=== PATIENT | male | born 1980 | race Caucasian/White ===

== ENCOUNTER 2017-11-30 10:10 | Inpatient (IN) | payer OTHER ==
[2017-11-30 10:46] LABS: #Eosinphils 0.1 thou/uL (0.0-0.7); #Lymphocytes 2.3 thou/uL (1.20-3.40); #Monocytes 0.6 thou/uL (0.11-0.59); #Neutrophils 3.8 thou/uL (1.40-6.50); %Basophils 0.6 % (0.0-1.0); %Eosinophils 1.8 % (0.0-10.0); %Lymphocytes 33.9 % (21.0-51.0); %Neutrophils 55.7 % (42.0-75.0); Hemoglobin 16.2 g/dL (14.0-18.0); Mean Corpuscular HGB CONC 34.7 g/dL (32.0-36.0); Mean Corpuscular Hemoglobin 31.5 pg (27.0-31.0); Mean Platelet Volume 7.7 fL (7.4-10.4); Platelet Count 167 thou/uL (130-400); RBC Distribution Width 10.9 % (11.5-14.5); Red Blood Cell (RBC) Count 5.13 mill/uL (4.70-6.10); White Blood Cell (WBC) Count 6.8 thou/uL (4.8-10.8)
[2017-11-30 11:00] LABS: ALT (SGPT) 779 U/L (8-55); AST (SGOT) 2171 U/L (5-34); Albumin 4.1 g/dL (3.5-5.0); Alkaline Phosphatase 40 U/L (40-150); Anion Gap 15 mmol/L (10-20); BUN (Urea Nitrogen) 11 mg/dL (8.9-20.6); Bilirubin, Total 0.7 mg/dL (0.2-1.2); Calc. Creatinine Clearance 0 mL/min (70-130); Calcium 9.2 mg/dL (7.8-10.44); Carbon Dioxide 21 mmol/L (22-29); Chloride 106 mmol/L (98-107); Estimated GFR-MDRD 88; Globulin 3.1 g/dL (2.4-3.5); Glucose 99 mg/dL (70-105); Protein, Total 7.2 g/dL (6.0-8.3); Sodium 137 mmol/L (136-145)
[2017-11-30 11:04] LABS: Bilirubin Negative (Negative); Blood, Urine Large (Negative); Clarity CLEAR (Clear); Glucose, Urine (Dipstick) Negative (Negative); Leukocyte Negative (Negative); Nitrite Negative (Negative); Protein, Urine (Dipstick) 30 mg/dL (Neg-Trace); Specific Gravity, Urine 1.009 (1.002-1.036); Urobilinogen 0.2 mg/dL (0.2-1.0)
[2017-11-30 11:05] LABS: Troponin I 0.087 ng/mL (< 0.028)
[2017-11-30 11:06] LABS: Bacteria/HPF None Seen HPF (None Seen); Hyaline Casts/LPF 0-3 HYALINE CAST LPF (0-3 Hyaline); RBC/HPF None Seen HPF (0-3); Squamous Epithelial None Seen HPF (0-3); WBC/HPF None Seen HPF (0-3)
[2017-11-30 11:09] LABS: CKMB 27.4 ng/mL (0-6.6)
[2017-11-30 12:14] LABS: CK (CPK) Greater than 40000 U/L (30-200)
--- NOTE | 2017-11-30 12:52 | PDOC.FPRHP ---
- History of Present Illness Chief Complaint: Body aches and fatigue History of Present Illness: 37 year old male with no significant PMH presents with a 4 day history of fatigue and body aches. Patient normally works out 5 days a week but had recently been on vacation in [place], so his workout regimen has been minimal over the last several weeks. On Sunday, pt attempted the "Me" workout as he does every year. The day after his intense workout he noticed swelling and pain in his arms. He has been unable to fully extend or flex his arms since that time. Patient has had rhabdomyolysis in the past and recognized the symptoms so he had his buddies at work hook him up to an IV. He got a total of 5 L before seeking care. Patient went into clinic for evaluation. Labs were checked and he was noted to have an elevated CK. PCP called and told him to come to the ER for fluids. Patient denies chest pain, shortness of breath, fever, decreased appetite, or numbness/tingling in extremities. - Allergies/Adverse Reactions Allergies Allergy/AdvReac Type Severity Reaction Status Date / Time No Known Allergies Allergy Unverified 11/30/17 14:54 - Home Medications Medication Instructions Recorded Confirmed Type No Known [No Known] 11/30/17 11/30/17 History - History PMHx: No Known PMH PSHx: None FHx: Insignificant Social: Denies tobacco or drug use. Endorses occasional alcohol use. - Review of Systems General: reports: fatigue. denies: fever/chills, weight/appetite/sleep changes , night sweats Eyes: denies: eye pain, vision changes ENT: denies: nasal congestion, rhinorrhea Respiratory: denies: cough, congestion, shortness of breath, exercise intolerance Cardiovascular: denies: chest pain, palpitation, edema, paroxysmal nocturnal dyspnea Gastrointestinal: denies: nausea, vomiting, diarrhea, constipation, abdominal pain Genitourinary: denies: incontinence, dysuria, polyuria Skin: denies: rashes, lesions, jaundice, itching Musculoskeletal: reports: pain, tenderness, stiffness, swelling. denies: arthritis/arthralgias Neurological: reports: weakness. denies: numbness, syncope, seizure Psychological: denies: anxiety, depression - Vital signs BP: 136/72 HR: 54 RR: 18 Tmax: 98.4 F Pox: 99% on RA Wt: 92.99 kg - Physical Exam Constitutional: NAD, awake, alert and oriented, well developed HEENT: normocephalic and atraumatic, PERRLA, EOMI, no scleral icterus, grossly normal vision, grossly normal hearing, normal nasal mucosa Neck: supple, FROM, trachea midline Heart: RRR, normal S1/S2, no murmurs/rubs/gallops, pulses present, no edema Lungs: CTAB, no respiratory distress, good air movement, no wheezing Abdomen: soft, non-tender, bowel sounds present, no masses/distention -Musculoskeletal: Swollen bilateral upper extremities most pronounced in bicep and tricep regions. Patient unable to fully extend or flex both arms at elbow joint. Bilateral upper extremities neurovascularly intact. Neurological: no focal deficit, CN II-XII intact, normal sensation Skin: no rash/lesions, good turgor, capillary refill <2 seconds Heme/Lymphatic: no unusual bruising or bleeding, no purpura, no petechia Psychiatric: normal mood and affect, good judgment and insight, intact recent and remote memory FMR H&P: Results - Labs Result Diagrams: 11/30/17 10:39 11/30/17 10:39 Lab results: WBC 6.8 thou/uL (4.8-10.8) 11/30/17 10:39 Hgb 16.2 g/dL (14.0-18.0) 11/30/17 10:39 Hct 46.6 % (42.0-52.0) 11/30/17 10:39 MCV 91.0 fl (80.0-94.0) 11/30/17 10:39 Plt Count 167 thou/uL (130-400) 11/30/17 10:39 Neutrophils % 55.7 % (42.0-75.0) 11/30/17 10:39 Sodium 137 mmol/L (136-145) 11/30/17 10:39 Potassium 5.0 mmol/L (3.5-5.1) 11/30/17 10:39 Chloride 106 mmol/L (98-107) 11/30/17 10:39 Carbon Dioxide 21 mmol/L (22-29) L 11/30/17 10:39 BUN 11 mg/dL (8.9-20.6) 11/30/17 10:39 Creatinine 0.97 mg/dL (0.6-1.3) 11/30/17 10:39 Glucose 99 mg/dL (70-105) 11/30/17 10:39 Lactic Acid 1.0 mmol/L (0.5-2.2) 11/30/17 10:40 Calcium 9.2 mg/dL (7.8-10.44) 11/30/17 10:39 Total Bilirubin 0.7 mg/dL (0.2-1.2) 11/30/17 10:39 AST 2171 U/L (5-34) H 11/30/17 10:39 ALT 779 U/L (8-55) H 11/30/17 10:39 Alkaline Phosphatase 40 U/L (40-150) 11/30/17 10:39 Creatine Kinase Greater than [address]10 U/L (30-200) H 11/30/17 10:39 CK-MB (CK-2) 27.4 ng/mL (0-6.6) H* 11/30/17 10:39 Serum Total Protein 7.2 g/dL (6.0-8.3) 11/30/17 10:39 Albumin 4.1 g/dL (3.5-5.0) 11/30/17 10:39 Urine Ketones Negative mg/dL (Negative) 11/30/17 10:21 Urine Blood Large (Negative) H 11/30/17 10:21 Urine Nitrite Negative (Negative) 11/30/17 10:21 Ur Leukocyte Esterase Negative (Negative) 11/30/17 10:21 Urine RBC None Seen HPF (0-3) 11/30/17 10:21 Urine WBC None Seen HPF (0-3) 11/30/17 10:21 Ur Squamous Epith Cells None Seen HPF (0-3) 11/30/17 10:21 Urine Bacteria None Seen HPF (None Seen) 11/30/17 10:21 - EKG Interpretation EKG: NSR FMR H&P: A/P - Problem List (1) Rhabdomyolysis Current Visit: Yes Status: Acute Code(s): M62.82 - RHABDOMYOLYSIS - Plan Rhabdomyolysis - Fluid resuscitation s/p 4 L - Goal urine output 200-300 mL per hour - Maintenance IVF NS at 250 ml/hr - Electrolytes pending - Trend CK - Strict I&O's Elevated troponin - Likely 2/2 muscle breakdown - Trend troponin - EKG NSR Transaminitis - Likely 2/2 muscle break down - Trend CMP Dispo: Admit to medical. Anticipate LOS >48 hours. FMR H&P: Upper Level - Pertinent history 37yo CM with no sig pmhx presents to [facility] after arm pain & swelling and dark colored urine for a few days after an intense "Em" [employer] work out 5 days [employer] (on ). Went to PCP yesterday who performed CMP + CK and the level was noted to be > 40,000 who recommended IV fluid treatment. Endorses 100 weighted pull-ups during work out which is outside his normal routine. 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 Denies cp, sob, n/v, or numbness/tingling to b/l UE. - Pertinent findings Laboratory Tests 11/30/17 11/30/17 11/30/17 10:39 10:39 10:39 WBC 6.8 Hct 46.6 MCV 91.0 Plt Count 167 Sodium 137 Potassium 5.0 Chloride 106 Carbon Dioxide 21 L BUN 11 Creatinine 0.97 Estimated GFR (MDRD) 88 Glucose 99 Lactic Acid Calcium 9.2 Phosphorus Magnesium Total Bilirubin 0.7 AST 2171 H ALT 779 H Alkaline Phosphatase 40 Creatine Kinase Greater [place] 27318 H CK-MB (CK-2) 27.4 H* Troponin I 0.087 H 11/30/17 11/30/17 10:39 10:40 WBC Hct MCV Plt Count Sodium Potassium Chloride Carbon Dioxide BUN Creatinine Estimated GFR (MDRD) Glucose Lactic Acid 1.0 Calcium Phosphorus 3.4 Magnesium 2.4 Total Bilirubin AST ALT Alkaline Phosphatase Creatine Kinase CK-MB (CK-2) Troponin I PE- Gen- NAD, A&Ox3, well appearing CV- rrr no mrg, no LE edema Lungs- CTAB Abd- soft, nontender Ext- b/l UE tense and decreased ROM - Plan Date/Time: 11/30/17 1251 37yo CM with no pmhx- 1) Rhabdomyolysis- s/p 4L NS bolus in ED, now on NS @ 250ml/hr with goal of 200- 300ml/hr UOP. Push po fluids. Strict I&O, monitor liver/kidney function and trend CK. 2) Elevated AST/ALT- likely due to muscle breakdown. monitor/trend 3) Elevated CKMB/trop- likely due to muscle breakdown. asymptomatic from ACS standpoint. EKG NSR. I, [Gail Rowe DO ([email or web address])], have evaluated this patient and agree with findings/plan as outlined by recruitment internship resident. Pertinent changes/additions are listed here. Attending Addendum - Attending Addendum Date/Time: 11/30/172004 I personally evaluated the patient and discussed the management with Dr. Momin I agree with the History, Examination, Assessment and Plan documented above with any addition or exceptions noted below- Briefly this is a 37 yo male with no significant PMH who presented c/o bilateral arm pain and swelling. He had performed vigorous exercise on Sunday and since then has had pain in his upper arms and swelling. Denies any CO, SOB, leg pain, numbness or tingling. PMH/PSH/ All/Meds/SH/ROS reviewed and agree with residents documentation. Afebrile VSS Exam repeated by me and agree with residents findings. Labs: CK>[id number] A/P: 1) Rhabdomyolysis- continue vigorous hydration. normal renal function at this time. Continue to monitor closely.
[2017-11-30 13:34] LABS: Magnesium 2.4 mg/dL (1.6-2.6); Phosphorus 3.4 mg/dL (2.3-4.7)
[2017-11-30] MEDS ORDERED: Milk Of Magnesia 30 ML UDCUP PO PRN (14:15)
[2017-11-30] MEDS ORDERED: Ondansetron HCl/PF 4 MG/2 ML Vial IVP PRN (14:15)
[2017-11-30] MEDS ORDERED: Mag-Al 1200 mg/1200 mg/30 ML UDCUP PO PRN (14:15)
[2017-11-30] MEDS ORDERED: Ondansetron ODT 4 MG TAB PO PRN (14:15)
[2017-11-30] MEDS ORDERED: Calcium Carbonate 500 MG ChewTAB PO PRN (14:15)
[2017-11-30] MEDS ORDERED: traMADol HCl 50 MG TAB PO PRN (14:17)
[2017-11-30 14:52] VITALS: BMI 29.9
[2017-11-30] MEDS: Sodium Chloride 0.9% 1,000 ML IV SCH ×3 (16:42→22:09)
[2017-12-01] MEDS: Sodium Chloride 0.9% 1,000 ML IV SCH ×5 (02:08→20:19)
[2017-12-01 05:40] LABS: #Basophils 0.1 thou/uL (0.0-0.2); #Eosinphils 0.2 thou/uL (0.0-0.7); #Lymphocytes 2.7 thou/uL (1.20-3.40); #Monocytes 0.6 thou/uL (0.11-0.59); #Neutrophils 4.5 thou/uL (1.40-6.50); %Basophils 0.6 % (0.0-1.0); %Eosinophils 2.1 % (0.0-10.0); %Lymphocytes 34.1 % (21.0-51.0); %Monocytes 6.9 % (0.0-10.0); %Neutrophils 56.3 % (42.0-75.0); Hemoglobin 14.7 g/dL (14.0-18.0); Mean Corpuscular HGB CONC 33.9 g/dL (32.0-36.0); Mean Corpuscular Hemoglobin 30.8 pg (27.0-31.0); Mean Platelet Volume 7.8 fL (7.4-10.4); Platelet Count 157 thou/uL (130-400); Red Blood Cell (RBC) Count 4.77 mill/uL (4.70-6.10)
[2017-12-01 05:54] LABS: ALT (SGPT) 716 U/L (8-55); AST (SGOT) 1728 U/L (5-34); Albumin 3.7 g/dL (3.5-5.0); Alkaline Phosphatase 32 U/L (40-150); Anion Gap 11 mmol/L (10-20); BUN (Urea Nitrogen) 11 mg/dL (8.9-20.6); Bilirubin, Total 0.5 mg/dL (0.2-1.2); Calc. Creatinine Clearance 167 mL/min (70-130); Carbon Dioxide 23 mmol/L (22-29); Chloride 110 mmol/L (98-107); Estimated GFR-MDRD Greater than 90; Globulin 2.4 g/dL (2.4-3.5); Glucose 100 mg/dL (70-105); Potassium 4.3 mmol/L (3.5-5.1); Protein, Total 6.1 g/dL (6.0-8.3); Sodium 140 mmol/L (136-145)
--- NOTE | 2017-12-01 06:27 | PDOC.FM ---
- Subjective Subjective: No acute events overnight. No complaints this am. - Objective MAR Reviewed: Yes Vital Signs & Weight: Vital Signs (12 hours) Temp Pulse Resp BP Pulse Ox 11/30/17 20:00 98.0 F 60 16 146/79 H 97 Result Diagrams: 12/01/17 04:54 12/01/17 04:54 <Dulce Batista - Last Filed: 12/01/17 07:44> - Objective Vital Signs & Weight: Vital Signs (12 hours) Temp Pulse Resp BP Pulse Ox 12/01/17 07:35 97.7 F 53 L 18 161/91 H 99 I&O: 11/30/17 12/01/17 12/02/17 06:59 06:59 06:59 Intake Total 2750 Output Total 4400 Balance -1650 Result Diagrams: 12/01/17 04:54 12/01/17 04:54 <Pino Mackay - Last Filed: 12/01/17 09:06> Phys Exam - Physical Examination Constitutional: NAD HEENT: PERRLA, moist MMs Neck: no JVD Respiratory: no wheezing, no rales, clear to auscultation bilateral Cardiovascular: RRR, no significant murmur Gastrointestinal: soft, non-tender, no distention, positive bowel sounds Musculoskeletal: no edema, pulses present Neurological: non-focal Psychiatric: normal affect, A&O x 3 Skin: no rash <Dulce Batista - Last Filed: 12/01/17 07:44> Dx/Plan (1) Elevated troponin Code(s): R74.8 - ABNORMAL LEVELS OF OTHER SERUM ENZYMES Status: Acute (2) Elevated liver enzymes Code(s): R74.8 - ABNORMAL LEVELS OF OTHER SERUM ENZYMES Status: Acute (3) Rhabdomyolysis Code(s): M62.82 - RHABDOMYOLYSIS Status: Acute - Plan Plan: Rhabdomyolysis - Fluid resuscitation s/p 4 L - Goal urine output 200-300 mL per hour - Maintenance IVF NS at 250 ml/hr - Bolused an additional 1L this am - Trend CK - Strict I&O's Elevated troponin - Likely 2/2 muscle breakdown - Trend troponin - EKG NSR Transaminitis - Likely 2/2 muscle break down - Trend CMP Dispo: Admit to medical. Anticipate LOS >48 hours. <Dulce Batista - Last Filed: 12/01/17 07:44> Attending Addendum - Attending Addendum Date/Time: 12/01/17904 I personally evaluated the patient and discussed the management with Dr. Luna. I agree with the History, Examination, Assessment and Plan documented above with any addition or exceptions noted below. Continue hydration for rhabdomyolysis and medical care as described. <Pino Mackay - Last Filed: 12/01/17 09:06>
[2017-12-01 06:33] LABS: CK (CPK) Greater than 40000 U/L (30-200)
[2017-12-01] MEDS ORDERED: Sodium Chloride 0.9% 1,000 ML IV SCH ×2 (06:45→16:00)
[2017-12-01 08:00] LABS: Troponin I 0.078 ng/mL (< 0.028)
[2017-12-01 08:05] LABS: CKMB 14.1 ng/mL (0-6.6)
[2017-12-01 11:15] LABS: CKMB 16.2 ng/mL (0-6.6)
[2017-12-02] MEDS: Sodium Chloride 0.9% 1,000 ML IV SCH ×6 (00:26→21:01)
[2017-12-02 05:44] LABS: Troponin I 0.075 ng/mL (< 0.028)
[2017-12-02 05:56] LABS: #Eosinphils 0.2 thou/uL (0.0-0.7); #Lymphocytes 2.7 thou/uL (1.20-3.40); #Monocytes 0.6 thou/uL (0.11-0.59); #Neutrophils 3.5 thou/uL (1.40-6.50); %Basophils 0.2 % (0.0-1.0); %Eosinophils 3.1 % (0.0-10.0); %Lymphocytes 38.7 % (21.0-51.0); %Monocytes 8.5 % (0.0-10.0); %Neutrophils 49.6 % (42.0-75.0); Hemoglobin 13.7 g/dL (14.0-18.0); Mean Corpuscular HGB CONC 32.9 g/dL (32.0-36.0); Mean Corpuscular Volume 91.2 fl (80.0-94.0); Mean Platelet Volume 8.1 fL (7.4-10.4); Platelet Count 147 thou/uL (130-400); RBC Distribution Width 11.1 % (11.5-14.5); Red Blood Cell (RBC) Count 4.58 mill/uL (4.70-6.10); White Blood Cell (WBC) Count 7.1 thou/uL (4.8-10.8)
--- NOTE | 2017-12-02 06:33 | PDOC.FM ---
- Subjective Subjective: No acute events overnight. VSS. Afebrile. States his muscle aches are improved. - Objective MAR Reviewed: Yes Vital Signs & Weight: Vital Signs (12 hours) Temp Pulse Resp BP Pulse Ox 12/01/17 20:04 97.6 F 69 18 98 12/01/17 20:00 97.6 F 69 18 151/95 H 98 I&O: 11/30/17 12/01/17 12/02/17 06:59 06:59 06:59 Intake Total 2750 7230 Output Total 4400 9200 Balance Result Diagrams: 12/02/17 04:20 12/02/17 04:20 <Dulce Batista - Last Filed: 12/02/17 07:30> - Objective Vital Signs & Weight: Vital Signs (12 hours) Temp Pulse Resp BP Pulse Ox 12/02/17 08:10 97.7 F 65 18 134/82 98 I&O: 12/01/17 12/02/17 12/03/17 06:59 06:59 06:59 Intake Total 2750 7230 Output Total 4400 9200 Balance Result Diagrams: 12/02/17 04:20 12/02/17 04:20 <Pino Mackay - Last Filed: 12/02/17 08:45> Phys Exam - Physical Examination Constitutional: NAD Respiratory: no wheezing, no rales, no rhonchi, clear to auscultation bilateral Cardiovascular: RRR, no significant murmur Gastrointestinal: soft, non-tender, no distention Musculoskeletal: no edema, pulses present Neurological: non-focal Psychiatric: normal affect, A&O x 3 Skin: no rash, normal turgor, cap refill <2 seconds <uDlce Batista - Last Filed: 12/02/17 07:30> Dx/Plan (1) Rhabdomyolysis Code(s): M62.82 - RHABDOMYOLYSIS Status: Acute (2) Elevated troponin Code(s): R74.8 - ABNORMAL LEVELS OF OTHER SERUM ENZYMES Status: Acute (3) Elevated liver enzymes Code(s): R74.8 - ABNORMAL LEVELS OF OTHER SERUM ENZYMES Status: Acute - Plan Plan: Rhabdomyolysis - Ordered an additional 1L of fluids this am as pt's CK is still >40,000 - Will recheck CK this afternoon at 1500 - Goal urine output 200-300 mL per hour - Maintenance IVF NS at 250 ml/hr - Trend CK - Strict I&O's Elevated troponin - Likely 2/2 muscle breakdown - downtrending - EKG NSR Transaminitis - Likely 2/2 muscle break down, downtrending Dispo: Admit to medical. Anticipate LOS >48 hours. <uDlce Batista - Last Filed: 12/02/17 07:30> Attending Addendum - Attending Addendum Date/Time: 12/02/17 0844 I personally evaluated the patient and discussed the management with Dr. Luna I agree with the History, Examination, Assessment and Plan documented above with any addition or exceptions noted below. Still elevated cpk/ck-mb and lfts. No chest pain. Will continue iv and oral hydration and monitor labs. <Pino Mackay - Last Filed: 12/02/17 08:45>
[2017-12-02] MEDS ORDERED: Sodium Chloride 0.9% 1,000 ML IV SCH (06:45)
[2017-12-02 07:17] LABS: ALT (SGPT) 697 U/L (8-55); AST (SGOT) 1426 U/L (5-34); Albumin 3.6 g/dL (3.5-5.0); Alkaline Phosphatase 31 U/L (40-150); Anion Gap 11 mmol/L (10-20); BUN (Urea Nitrogen) 9 mg/dL (8.9-20.6); Bilirubin, Total 0.4 mg/dL (0.2-1.2); Calc. Creatinine Clearance 167 mL/min (70-130); Calcium 8.9 mg/dL (7.8-10.44); Carbon Dioxide 24 mmol/L (22-29); Chloride 110 mmol/L (98-107); Estimated GFR-MDRD Greater than 90; Globulin 2.3 g/dL (2.4-3.5); Glucose 95 mg/dL (70-105); Potassium 3.9 mmol/L (3.5-5.1); Protein, Total 5.9 g/dL (6.0-8.3); Sodium 141 mmol/L (136-145)
[2017-12-03] MEDS: Sodium Chloride 0.9% 1,000 ML IV SCH ×6 (02:33→19:59)
[2017-12-03 04:37] LABS: #Basophils 0.1 thou/uL (0.0-0.2); #Eosinphils 0.2 thou/uL (0.0-0.7); #Lymphocytes 2.8 thou/uL (1.20-3.40); #Monocytes 0.5 thou/uL (0.11-0.59); %Basophils 0.8 % (0.0-1.0); %Eosinophils 2.8 % (0.0-10.0); %Lymphocytes 42.8 % (21.0-51.0); %Monocytes 7.2 % (0.0-10.0); %Neutrophils 46.3 % (42.0-75.0); Hemoglobin 13.3 g/dL (14.0-18.0); Mean Corpuscular HGB CONC 34.7 g/dL (32.0-36.0); Mean Corpuscular Hemoglobin 31.8 pg (27.0-31.0); Mean Corpuscular Volume 91.8 fl (80.0-94.0); Mean Platelet Volume 8.3 fL (7.4-10.4); Platelet Count 147 thou/uL (130-400); RBC Distribution Width 10.9 % (11.5-14.5); Red Blood Cell (RBC) Count 4.18 mill/uL (4.70-6.10); White Blood Cell (WBC) Count 6.5 thou/uL (4.8-10.8)
[2017-12-03] MEDS ORDERED: Sodium Chloride 0.9% 1,000 ML IV SCH (06:30)
--- NOTE | 2017-12-03 06:38 | PDOC.FM ---
- Subjective Subjective: No acute events overnight. Complains of his hands being puffy. Wants to go home. - Objective Vital Signs & Weight: Vital Signs (12 hours) Temp Pulse Resp BP Pulse Ox 12/02/17 19:43 98.0 F 71 18 142/87 H 97 I&O: 12/01/17 12/02/17 12/03/17 06:59 06:59 06:59 Intake Total 2750 7230 6720 Output Total 4400 9200 8500 Balance -1649 Result Diagrams: 12/03/17 03:50 12/03/17 07:09 <Dulce Batista - Last Filed: 12/03/17 09:11> - Objective Vital Signs & Weight: Vital Signs (12 hours) Temp Pulse Resp Pulse Ox 12/03/17 08:00 98.3 F 70 18 98 I&O: 12/02/17 12/03/17 12/04/17 06:59 06:59 06:59 Intake Total 7230 6720 720 Output Total 9200 8500 720 Result Diagrams: 12/03/17 03:50 12/03/17 07:09 <Stephanie Hodgson - Last Filed: 12/03/17 19:21> Phys Exam - Physical Examination Constitutional: NAD HEENT: PERRLA Respiratory: no wheezing, no rales, clear to auscultation bilateral Cardiovascular: RRR, no significant murmur Gastrointestinal: soft, non-tender, no distention Musculoskeletal: no edema Neurological: non-focal Psychiatric: normal affect, A&O x 3 Skin: no rash <Dulce Batista - Last Filed: 12/03/17 09:11> Dx/Plan (1) Rhabdomyolysis Code(s): M62.82 - RHABDOMYOLYSIS Status: Acute (2) Elevated troponin Code(s): R74.8 - ABNORMAL LEVELS OF OTHER SERUM ENZYMES Status: Acute (3) Elevated liver enzymes Code(s): R74.8 - ABNORMAL LEVELS OF OTHER SERUM ENZYMES Status: Acute - Plan Plan: Rhabdomyolysis - Ordered an additional 1L of fluids this am as pt's CK is 36,691 - Will recheck CK this afternoon at 1500 - Continue to monitor UOP - Maintenance IVF NS at 250 ml/hr - Trend CK - Strict I&O's Elevated troponin - Likely 2/2 muscle breakdown - downtrending - EKG NSR Transaminitis - Likely 2/2 muscle break down, downtrending Dispo: Admit to medical. Hopeful for DC tomorrow. <Dulce Batista - Last Filed: 12/03/17 09:11> Attending Addendum - Attending Addendum Date/Time: 12/03/171920 I personally evaluated the patient and discussed the management with Dr. Batista. I agree with the History, Examination, Assessment and Plan documented above with any addition or exceptions noted below. The patient has a CK coming back this afternoon. Will get ruq u/s to look at liver as he has elevated transaminases. Will continue iv fluids. <Stephanie Hodgson - Last Filed: 12/03/17 19:21>
[2017-12-03 07:47] LABS: ALT (SGPT) 686 U/L (8-55); AST (SGOT) 1057 U/L (5-34); Albumin 3.9 g/dL (3.5-5.0); Alkaline Phosphatase 33 U/L (40-150); Anion Gap 12 mmol/L (10-20); BUN (Urea Nitrogen) 9 mg/dL (8.9-20.6); Bilirubin, Total 0.9 mg/dL (0.2-1.2); Calc. Creatinine Clearance 165 mL/min (70-130); Calcium 9.4 mg/dL (7.8-10.44); Carbon Dioxide 24 mmol/L (22-29); Estimated GFR-MDRD Greater than 90; Globulin 2.7 g/dL (2.4-3.5); Glucose 93 mg/dL (70-105); Iron 84 ug/dL (65-175); Iron Binding Capacity, Total 294 mcg/dL (261-462); Protein, Total 6.6 g/dL (6.0-8.3); Sodium 141 mmol/L (136-145)
[2017-12-03 07:55] LABS: Chloride 109 mmol/L (98-107)
--- NOTE | 2017-12-03 17:35 | ULT ---
GALLBLADDER ULTRASOUND: HISTORY: Elevated LFTs. FINDINGS: Real-time imaging of the right upper quadrant shows a fairly normal appearing gallbladder, perhaps sl ightly contracted, but no gallbladder wall thickening. The technologist reports a negative ultrasoun d Quintero sign. The common duct is 2 mm. The visualized liver parenchyma shows no focal abnormalitie s. The right kidney is not obstructed. The pancreas is fairly well imaged, and it appears unremarka ble. IMPRESSION: Unremarkable gallbladder ultrasound. POS: CARLOS
[2017-12-04] MEDS: Sodium Chloride 0.9% 1,000 ML IV SCH ×5 (00:06→16:42)
[2017-12-04 05:31] LABS: #Eosinphils 0.1 thou/uL (0.0-0.7); #Lymphocytes 2.5 thou/uL (1.20-3.40); #Monocytes 0.5 thou/uL (0.11-0.59); #Neutrophils 2.7 thou/uL (1.40-6.50); %Basophils 0.6 % (0.0-1.0); %Eosinophils 2.1 % (0.0-10.0); %Lymphocytes 42.7 % (21.0-51.0); %Monocytes 8.4 % (0.0-10.0); %Neutrophils 46.1 % (42.0-75.0); Hemoglobin 12.7 g/dL (14.0-18.0); Mean Corpuscular HGB CONC 32.5 g/dL (32.0-36.0); Mean Corpuscular Hemoglobin 29.8 pg (27.0-31.0); Mean Corpuscular Volume 91.7 fl (80.0-94.0); Platelet Count 147 thou/uL (130-400); RBC Distribution Width 10.8 % (11.5-14.5); Red Blood Cell (RBC) Count 4.28 mill/uL (4.70-6.10); White Blood Cell (WBC) Count 5.9 thou/uL (4.8-10.8)
[2017-12-04 05:47] LABS: ALT (SGPT) 543 U/L (8-55); AST (SGOT) 674 U/L (5-34); Albumin 3.5 g/dL (3.5-5.0); Alkaline Phosphatase 31 U/L (40-150); Anion Gap 9 mmol/L (10-20); BUN (Urea Nitrogen) 11 mg/dL (8.9-20.6); Bilirubin, Total 0.5 mg/dL (0.2-1.2); Calc. Creatinine Clearance 171 mL/min (70-130); Calcium 8.7 mg/dL (7.8-10.44); Carbon Dioxide 27 mmol/L (22-29); Chloride 108 mmol/L (98-107); Estimated GFR-MDRD Greater than 90; Globulin 2.2 g/dL (2.4-3.5); Glucose 96 mg/dL (70-105); Potassium 3.7 mmol/L (3.5-5.1); Protein, Total 5.7 g/dL (6.0-8.3); Sodium 140 mmol/L (136-145)
[2017-12-04 06:12] LABS: CK (CPK) 22192 U/L (30-200)
[2017-12-04 07:18] VITALS: BP 130/82; TEMP 97.9
--- NOTE | 2017-12-04 07:44 | PDOC.FM ---
- Subjective Subjective: No acute events overnight. Denies complaints this morning. Wants to go home. - Objective MAR Reviewed: Yes Vital Signs & Weight: Vital Signs (12 hours) Temp Pulse Resp BP Pulse Ox 12/04/17 07:16 97.9 F 54 L 18 130/82 97 12/03/17 19:49 98.2 F 52 L 18 156/91 H 98 12/03/17 19:42 98.2 F 52 L 18 98 I&O: 12/03/17 12/04/17 12/05/17 06:59 06:59 06:59 Intake Total 6720 4200 Output Total 8500 3000 Balance -1780 1200 Result Diagrams: 12/04/17 05:18 12/04/17 05:18 <Dulce Batista - Last Filed: 12/04/17 08:55> - Objective Vital Signs & Weight: Vital Signs (12 hours) Temp Pulse Resp BP Pulse Ox 12/04/17 08:00 97.9 F 54 L 18 99 12/04/17 07:16 97.9 F 54 L 18 130/82 97 I&O: 12/03/17 12/04/17 12/05/17 06:59 06:59 06:59 Intake Total 6720 4200 720 Output Total 8500 3000 Balance -1780 1200 720 Result Diagrams: 12/04/17 05:18 12/04/17 05:18 <Stephanie Hodgson - Last Filed: 12/04/17 14:26> Phys Exam - Physical Examination Constitutional: NAD Respiratory: no wheezing, no rales, no rhonchi, clear to auscultation bilateral Cardiovascular: RRR, no significant murmur Gastrointestinal: soft, non-tender, no distention Musculoskeletal: no edema Psychiatric: normal affect, A&O x 3 Skin: no rash, normal turgor <Dulce Batista - Last Filed: 12/04/17 08:55> Dx/Plan (1) Rhabdomyolysis Code(s): M62.82 - RHABDOMYOLYSIS Status: Acute (2) Elevated troponin Code(s): R74.8 - ABNORMAL LEVELS OF OTHER SERUM ENZYMES Status: Acute (3) Elevated liver enzymes Code(s): R74.8 - ABNORMAL LEVELS OF OTHER SERUM ENZYMES Status: Acute - Plan Plan: Rhabdomyolysis - Ck today: 22,192 - plan to check CK this evening and checked here tomorrow. Will discharge patient with a lab slip. - Continue to monitor UOP - Maintenance IVF NS at 250 ml/hr - Strict I&O's Elevated troponin - Likely 2/2 muscle breakdown - downtrending - EKG NSR Transaminitis - downtrending - RUQ US wnl Dispo: Plan for discharge this afternoon. <Dulce Batista - Last Filed: 12/04/17 08:55> Attending Addendum - Attending Addendum Date/Time: 12/04/17 3934 I personally evaluated the patient and discussed the management with Dr. Batista. I agree with the History, Examination, Assessment and Plan documented above with any addition or exceptions noted below. The patient's CK is downtrending as is his liver enzymes. RUQ u/s reviewed and unremarkable. will check hepatitis panel. REcheck CK this afternoon and if continuing to decrease pt may d/c home but will come back tomorrow for repeat labs. <Stephanie Hodgson - Last Filed: 12/04/17 14:26>
[2017-12-04 15:55] LABS: HBCM Index 0.06 S/CO (0-0.79); HBSAg Index 0.25 S/CO (0-0.99); Hep A IgM AB Non-Reactive (NonReactive); Hep A IgM S/CO 0.09 S/CO (0-0.79); Hep B Surf Ag Non-Reactive S/CO (NonReactive); Hep C IgG Ab Non-Reactive (NonReactive); Hep C Index 0.08 S/CO (0-0.79); Hepatitis B Core IGM Abs Non-Reactive (NonReactive)
== END 2017-12-04 17:14 | disposition home or self-care (01) | DRG 558 ==
LOC: ERS 10:10 → T4-A 13:20
PROVIDERS: ADMIT Family Medicine; ATTEND Family Medicine
DX: M62.82 Rhabdomyolysis (principal); R74.8 Abnormal levels of other serum enzymes; R74.0 Nonspecific elevation of levels of transaminase and lactic acid dehydrogenase [LDH]
CPT/HCPCS: 36415; 76705; 80053; 80074; 81003; 81015; 82550; 82553; 82728; 83540; 83550; 83605; 83735; 84100; 84484; 85025; 93005; 96360; 96361

== ENCOUNTER 2025-03-27 06:35 | Day surgery (SDC) | payer BC ==
[2025-03-25 14:55] VITALS: BMI 28.7
[2025-03-27] MEDS ORDERED: PROPOFOL 20 ML ONE ×2 (07:39→08:23)
[2025-03-27] MEDS ORDERED: CEFAZOLIN 2 GM VIAL ONE (07:57)
[2025-03-27] MEDS ORDERED: Lidocaine 1% PF 5 ML VIAL ONE (08:23)
[2025-03-27] MEDS ORDERED: Ondansetron PF 4 MG/2 ML Vial ONE (09:13)
[2025-03-27] MEDS ORDERED: Ketorolac Tromethamine 30 MG (1 mL) VIAL ONE (10:19)
== END 2025-03-27 12:20 | disposition home or self-care (01) ==
LOC: SDC 06:35
PROVIDERS: ATTEND Orthopaedic Surgery
PROC: 0SBD4ZZ Excision of Left Knee Joint, Percutaneous Endoscopic Approach (ICD-10-PCS; principal; 2025-03-27)
DX: S83.242A Other tear of medial meniscus, current injury, left knee, initial encounter (principal); E78.5 Hyperlipidemia, unspecified; M71.22 Synovial cyst of popliteal space [Baker], left knee; Z79.899 Other long term (current) drug therapy; X50.0XXA Overexertion from strenuous movement or load, initial encounter
CPT/HCPCS: J0169; J0665; J1100; J1885; J2704